=== PATIENT | male | born 1960 | race Caucasian/White ===

== ENCOUNTER 2020-05-18 15:12 | Observation (INO) ==
[2020-05-18] MEDS ORDERED: Aspirin 325 MG TABLET PO ONE (15:19)
[2020-05-18 16:11] LABS: Basophils # 0.1 K/mcL (0.0-0.2); Basophils % 1.1 %; Eosinophils # 0.2 K/mcL (0.0-0.6); Eosinophils % 2.4 %; Hematocrit 50.4 % (37.5-50.1); Hemoglobin 17.1 g/dL (12.9-16.9); Immature Granulocytes % 0.3 % (0-4); Lymphocytes # 1.9 K/mcL (0.6-4.6); Lymphocytes % 29.5 %; Mean Corpuscular HGB Conc 33.9 g/dL (31.6-35.5); Mean Corpuscular Hemoglobin 31.1 pg (28.0-33.3); Mean Corpuscular Volume 91.8 fL (83.0-100.0); Monocytes # 0.7 K/mcL (0.0-1.3); Neutrophils # 3.7 K/mcL (1.6-8.9); Platelet Count 265 K/mcL (140-400); Red Blood Count 5.49 M/mcL (4.19-5.50); Red Cell Distribution Width 12.9 % (11.5-14.5); Segmented Neutrophils % 55.7 %; White Blood Count 6.6 K/mcL (4.3-11.1)
[2020-05-18 16:24] LABS: Prothrombin Time 11.7 Seconds (9.4-12.1)
[2020-05-18 16:27] LABS: Activated Partial Thrombo Time 29.4 Seconds (26.0-36.0)
[2020-05-18 16:35] LABS: BUN/Creatinine Ratio 9 (6-26); Blood Urea Nitrogen 10 mg/dL (6-20); Calcium 9.8 mg/dL (8.6-10.3); Carbon Dioxide 22 mEq/L (23-29); Chloride 106 mEq/L (98-107); Glucose 89 mg/dL (70-105); Osmolality,Calculated 287 (280-300); Potassium 4.1 mEq/L (3.5-5.1); Sodium 139 mEq/L (136-145); Troponin I < 0.03 ng/mL (< 0.04); eGFR For African Americans > 60 (> 60); eGFR For Non-African Americans > 60 (> 60)
[2020-05-18] MEDS ORDERED: Isovue-370 500 ML BOTTLE IVP ONE (16:37)
[2020-05-18 16:48] LABS: Thyroid Stimulating Hormone 1.555 mcIU/mL (0.340-5.600)
[2020-05-18] MEDS ORDERED: DilTIAZem CD (24hr) 120 MG CAP.ER.24H PO ONE (17:24)
[2020-05-18] MEDS ORDERED: Acetaminophen 325 MG TABLET PO PRN (18:49)
[2020-05-18] MEDS ORDERED: Ondansetron 4 MG/2 ML VIAL IVP PRN (18:49)
[2020-05-18] MEDS ORDERED: Naloxone 0.4 MG/ML INJ IVP PRN (18:49)
[2020-05-18] MEDS ORDERED: MOM Conc 10 ML UD.LIQ PO PRN (18:49)
[2020-05-18] MEDS ORDERED: Mag Hydrox/Al Hydrox/Simeth 30 ML UDC PO PRN (18:49)
[2020-05-18] MEDS ORDERED: Perflutren Lipid Microsphere 1.3 ML in 0.9 % Sodium Chloride 8.7 ML IVP PRN (18:55)
[2020-05-19 04:17] LABS: Basophils % 0.6 %; Eosinophils # 0.2 K/mcL (0.0-0.6); Eosinophils % 3.4 %; Hematocrit 43.5 % (37.5-50.1); Hemoglobin 15.2 g/dL (12.9-16.9); Immature Granulocytes % 0.3 % (0-4); Lymphocytes # 2.4 K/mcL (0.6-4.6); Lymphocytes % 37.1 %; Mean Corpuscular HGB Conc 34.9 g/dL (31.6-35.5); Mean Corpuscular Hemoglobin 31.2 pg (28.0-33.3); Mean Corpuscular Volume 89.3 fL (83.0-100.0); Mean Platelet Volume 9.5 fL (9.4-12.4); Monocytes # 0.8 K/mcL (0.0-1.3); Monocytes % 12.7 %; Platelet Count 299 K/mcL (140-400); Red Blood Count 4.87 M/mcL (4.19-5.50); Red Cell Distribution Width 12.9 % (11.5-14.5); Segmented Neutrophils % 45.9 %; White Blood Count 6.5 K/mcL (4.3-11.1)
[2020-05-19 06:09] LABS: BUN/Creatinine Ratio 13 (6-26); Blood Urea Nitrogen 15 mg/dL (6-20); Calcium 9.1 mg/dL (8.6-10.3); Carbon Dioxide 22 mEq/L (23-29); Chloride 107 mEq/L (98-107); Cholesterol 125 mg/dL (< 200); Glucose 88 mg/dL (70-105); HDL Cholesterol 41 mg/dL (40-59); LDL Cholesterol,Calculated 61 mg/dL (< 100); Osmolality,Calculated 288 (280-300); Potassium 4.3 mEq/L (3.5-5.1); Sodium 139 mEq/L (136-145); Triglycerides 113 mg/dL (< 150); eGFR For African Americans > 60 (> 60); eGFR For Non-African Americans > 60 (> 60)
[2020-05-19] MEDS ORDERED: Aspirin Enteric Coated 81 MG Tablet PO SCH (09:00)
[2020-05-19] MEDS ORDERED: risperiDONE 1 MG TABLET PO SCH (09:00)
[2020-05-19] MEDS ORDERED: lisinopriL 20 MG TABLET PO SCH ×2 (09:00)
[2020-05-19] MEDS ORDERED: Mirtazapine 15 MG TABLET PO SCH (09:00)
[2020-05-19] MEDS ORDERED: DilTIAZem CD (24hr) 120 MG CAP.ER.24H PO SCH (09:00)
[2020-05-19] MEDS ORDERED: Metoprolol 100 MG TABLET PO SCH (09:00)
[2020-05-19] MEDS ORDERED: DilTIAZem CD (24hr) 120 MG CAP.ER.24H PO ONE (10:15)
[2020-05-19 10:29] VITALS: BP 139/93
[2020-05-20] MEDS ORDERED: DilTIAZem CD (24hr) 240 MG CAP.ER.24H PO SCH (09:00)
== END 2020-05-19 13:25 | disposition home or self-care (01) ==
LOC: INPPIK 15:12 → EMEROOPIK 15:12 → INPPIK 20:15
PROVIDERS: ADMIT Family Medicine; ATTEND Family Medicine